=== PATIENT | female | born 1985 | race Caucasian/White ===

== ENCOUNTER 2024-12-19 19:39 | Inpatient (IN) | payer OTHER ==
[~2024-12-19] VITALS: Ht 162.6 cm; Wt 65.0 kg
[2024-12-19 20:19] LABS: COVID AG,FIA SOURCE NPH
[2024-12-19 20:47] LABS: SARS-COV2 (COVID) ANTIGEN,FIA Negative (Negative)
[2024-12-19] MEDS ORDERED: MAGNESIUM HYDROXIDE SUSPENSION 30 ML UDCUP PO PRN (23:45)
[2024-12-19] MEDS ORDERED: ZOLPIDEM TARTRATE 5 MG TABLET PO PRN (23:45)
[2024-12-20 00:59] LABS: BASOPHILS % (AUTO) 0.4 % (0.0-2.0); EOSINOPHILS % (AUTO) 1.9 % (1.0-6.0); HEMATOCRIT 38.7 % (36-46); HEMOGLOBIN 12.7 g/dL (12.0-16.0); LYMPHOCYTES # (AUTO) 2.2 K/uL (1.0-4.8); LYMPHOCYTES % (AUTO) 25.6 % (22.0-44.0); MEAN CORPUSCULAR HEMOGLOBIN 29.5 pg (26.0-34.0); MEAN CORPUSCULAR HGB CONC 32.9 G/dL (31.0-37.0); MEAN CORPUSCULAR VOLUME 90 fL (80-100); MONOCYTES # (AUTO) 0.6 K/uL (0.1-1.0); MONOCYTES % (AUTO) 7.5 % (2.0-9.0); NEUTROPHILS # (AUTO) 5.5 K/uL (1.8-7.7); NEUTROPHILS % (AUTO) 64.6 % (40.0-70.0); PLATELET COUNT (AUTO) 257 K/uL (150-450); RED BLOOD CELL COUNT(AUTO) 4.32 MIL/uL (4.00-5.20); RED CELL DISTRIBUTION WIDTH 13.7 % (11.5-14.5); WHITE BLOOD COUNT (AUTO) 8.5 K/uL (4.5-11.0)
[2024-12-20 01:06] LABS: ANION GAP 5 mmol/L (8-16); CALCIUM, TOTAL 8.8 mg/dL (8.8-10.5); CARBON DIOXIDE 31 mmol/L (22-29); CHLORIDE 105 mmol/L (98-107); CREATININE 0.66 mg/dL (0.60-1.30); GLOMERULAR FILTR. RATE CALC > 60 mL/min (>60); GLUCOSE,RANDOM 101 mg/dL (70-110); POTASSIUM 4.3 mmol/L (3.5-5.1); SODIUM SERUM 141 mmol/L (136-145); UREA NITROGEN, BLOOD 22 mg/dL (7-18)
[2024-12-20 01:17] LABS: HCG,QUANTITATIVE < 1 mIU/mL (0-6)
[2024-12-20 01:21] LABS: ALCOHOL, BLOOD (SERUM) < 3 mg/dL (0-10)
[2024-12-20 04:10] VITALS: BP 99/63; PULSE 72; RESP 18; TEMP 98.5; O2SAT 99
[2024-12-20 09:03] VITALS: BP 106/60; PULSE 71; RESP 18; TEMP 97.9; O2SAT 98
[2024-12-20] MEDS: ACETAMINOPHEN 325 MG TABLET PO PRN (14:14)
[2024-12-20 19:38] VITALS: BP 101/67; PULSE 72; RESP 18; TEMP 98.5; O2SAT 99
[2024-12-21 05:38] VITALS: BP 99/62; PULSE 70; RESP 18; TEMP 97.8; O2SAT 99
[2024-12-21 08:50] VITALS: BP 92/60; PULSE 69; RESP 18; TEMP 97.7; O2SAT 98
[2024-12-21 11:17] LABS: APPEARANCE,URINE CLEAR (CLEAR); BILIRUBIN,URINE NEGATIVE (NEGATIVE); COLOR,URINE YELLOW (YELLOW); GLUCOSE, URINE (UA) NEGATIVE (NEGATIVE); KETONES,URINE =>150 mg/dL (NEGATIVE); LEUKOCYTE ESTERASE ,URINE NEGATIVE (NEGATIVE); NITRATE,URINE NEGATIVE (NEGATIVE); OCCULT BLOOD,URINE LARGE (NEGATIVE); PROTEIN,URINE 100-200,SEE CONFIRM mg/dL (NEGATIVE); SPECIFIC GRAVITIY, URINE 1.038 (1.003-1.030)
[2024-12-21 11:37] LABS: BACTERIA,URINE None Seen /HPF (None Seen); SQUAMOUS EPITHELIAL CELL,UR Few /LPF (None Seen); SULFOSALICYLIC ACID,URINE Trace (Negative); WBC,URINE None Seen /HPF (0-5)
[2024-12-21 11:44] LABS: ALCOHOL, URINE DRUG SCREEN NEGATIVE (NEGATIVE); AMPHET/METH SCREEN,URINE NEGATIVE (NEGATIVE); BARBITURATE SCREEN, URINE NEGATIVE (NEGATIVE); BENZODIAZEPINES SCREEN,URINE NEGATIVE (NEGATIVE); CANNABINOID SCREEN,URINE NEGATIVE (NEGATIVE); COCAINE SCREEN,URINE NEGATIVE (NEGATIVE); METHADONE SCREEN, URINE NEGATIVE (NEGATIVE); OPIATE SCREEN,URINE NEGATIVE (NEGATIVE); PHENCYCLIDINE SCREEN,URINE NEGATIVE (NEGATIVE)
[2024-12-21 19:20] VITALS: BP 103/68; PULSE 67; RESP 18; TEMP 98.9; O2SAT 98
[2024-12-22 05:08] VITALS: BP 92/62; PULSE 62; RESP 18; TEMP 97.8; O2SAT 98
[2024-12-22 08:25] VITALS: BP 93/62; PULSE 64; RESP 18; TEMP 98.8; O2SAT 98
[2024-12-22 19:27] VITALS: BP 99/62; PULSE 68; RESP 18; TEMP 98.4; O2SAT 97
[2024-12-23 05:38] VITALS: BP 100/65; PULSE 68; RESP 18; TEMP 97.8; O2SAT 98
[2024-12-23 08:42] VITALS: BP 95/53; PULSE 68; RESP 18; TEMP 97.8; O2SAT 98
[2024-12-23 20:10] VITALS: BP 96/60; PULSE 70; RESP 18; TEMP 98.9; O2SAT 98
[2024-12-24 04:38] VITALS: BP 100/68; PULSE 70; RESP 18; TEMP 98.1; O2SAT 98
[2024-12-24 08:00] VITALS: BP 101/59; PULSE 72; RESP 16; TEMP 98; O2SAT 99
[2024-12-24 20:16] VITALS: BP 100/63; PULSE 73; RESP 18; TEMP 98.3; O2SAT 98
[2024-12-25 04:11] VITALS: BP 99/63; PULSE 65; RESP 18; TEMP 98.2; O2SAT 98
[2024-12-25 10:08] VITALS: BP 101/64; PULSE 64; RESP 19; TEMP 98.2; O2SAT 97
[2024-12-25] MEDS ORDERED: ACET-2247 PO (15:44)
[2024-12-25] MEDS ORDERED: MAGN-169 PO (15:45)
== END 2024-12-25 17:16 | DRG 881 ==
LOC: EMS 19:39 → EDH 12-20 03:04 → 6S 12-20 04:06
PROVIDERS: ADMIT Internal Medicine; ATTEND Internal Medicine
PROC: GZ51ZZZ Individual Psychotherapy, Behavioral (ICD-10-PCS; principal; 2024-12-20)
DX: F43.21 Adjustment disorder with depressed mood (principal); R45.851 Suicidal ideations; Z20.822 Contact with and (suspected) exposure to COVID-19; F32.9 Major depressive disorder, single episode, unspecified; M25.512 Pain in left shoulder; Z63.4 Disappearance and death of family member; Z79.899 Other long term (current) drug therapy
CPT/HCPCS: 80048; 80307; 81001; 81002; 84702; 85025; 99285; G0480